=== PATIENT | male | born 1975 | race Caucasian/White ===

== ENCOUNTER 2019-02-17 04:22 | Emergency (ER) | payer SELFPAY ==
[2019-02-17] MEDS: 0.9 % SODIUM CHLORIDE 1,000 ML IV ONE (05:10)
--- NOTE | 2019-02-17 05:22 | ED Physician Documentation ---
Lower Extremity Injury - HISTORIAN Historian: patient - HPI Stated Complaint: "I FELL ABOUT 3 WKS AGO AND HURT MY KNEE Chief Complaint: Lower Extremity Injury (Left knee) Additional Information: 44 year old male presents to the ER with c/o left knee pain s/p fall 3 weeks ago. Patient states that he fell and landed on some rebar approx. 3 weeks ago. His father brought him in this morning stating that patient has been running fe chelo (afebrile on arrival) and was difficult to wake up (strong strong odor of alcohol)- patient states he has had 3 beers and peach schnapps. He has been taking aspirin for the knee pain; has not seen PCP. He is alert and oriented x 4. Onset: days ago Where: home Severity: moderate Context: fall Associated Symptoms:: swelling Modifying Factors:: pain on movement - ROS CONST: fever CVS/RESP: none GI/: denies: nausea, vomiting MS/SKIN/LYMPH: none NEURO: denies: head injury - PAST HX Past History: none Immunizations: UTD. denies: tetanus Allergies/Adverse Reactions: Allergies Allergy/AdvReac Type Severity Reaction Status Date / Time No Known Drug Allergies Allergy Verified 02/17/19 04:42 Home Medications: Ambulatory Orders Medication Instructions Recorded Clindamycin HCl [Cleocin HCl] 300 mg PO QID #28 capsule 02/17/19 - SOCIAL HX Smoking History: less than 1 pack/day Alcohol Use: occasionally Drug Use: none - FAMILY HX Family History: none - VITAL SIGNS Vital Signs: Vital Signs Temp Pulse Resp BP Pulse Ox 98.1 F 84 16 126/97 98 02/17/19 04:30 02/17/19 04:30 02/17/19 04:30 11/03/15 11:59 02/17/19 04:30 - REVIEWED ASSESSMENTS Nursing Assessment Reviewed: Yes Vitals Reviewed: Yes Progress - Progress Progress: 05:35 patient initially stated he had a few beers this evening; discussed blood alcohol > 400; patient finally admits to being a heavy drinker when he initially said occasionally. With alcohol > 400 patient is alert and oriented x 4; appropriate conversation; visiting with family at the bedside. ED Results Lab/Radiology - Radiology Radiology Impressions: Left knee three views History: Pain after fall 2 weeks ago Findings: Medial and prepatellar soft tissue swelling is observed without fracture, dislocation, arthropathy, or joint effusion. Electronically signed on Feb 17, 2019 5:33:43 AM DOCTOR OF NATUROPATHIC MEDICINE by: Jah Patten - Orders Orders: ED Orders Category Date Time Status Place IV Lock 1T Care 02/17/19 04:39 Active KNEE 3 VIEWS [RAD] Stat Exams 02/17/19 Completed ALCOHOL MEDICAL USE ONLY Stat Lab 02/17/19 05:00 Received BLOOD CULTURE Stat Lab 02/17/19 Ordered CBC/PLATELET/DIFF Routine Lab 02/17/19 Ordered CMP Routine Lab 02/17/19 05:00 Received 0.9 % Sodium Chloride [Normal Saline] 1,000 ml Med 02/17/19 04:39 Discontinued IV NOW Clindamycin Phosphate/D5w [Cleocin] Med 02/17/19 04:39 Discontinued 600 mg in 50 ml IV NOW Diph,Pertuss(Acell),Tet Vac/Pf [Adacel] Med 02/17/19 05:03 Discontinued 0.5 ml IM .ONCE ONE Lower Extremities Injury Phy - Physical Exam General Appearance: alert, mild distress Hips: bilateral hip: non-tender, normal inspection, normal range of motion, no evidence of injury Knees: left: pain, soft tissue tenderness, swelling Ankle: bilateral: non-tender, normal inspection, normal range of motion, no evidence of injury Foot: bilateral foot: non-tender, normal inspection, normal range of motion, no evidence of injury Gait: limited by pain Neuro/Vascular/Tendon: motor nml, pulse deficit (distant but palpable), ROM limited by pain Head/ENT: nml inspection, pharynx nml Neck/Back: nml inspection Resp/CVS: breath sounds nml, tachycardia Discharge Clincal Impression: Cellulitis of left knee, Chronic alcohol abuse Prescriptions: Clindamycin HCl [Cleocin HCl] 300 mg PO QID #28 capsule Referrals: Primary Doctor,No [Primary Care Provider] - 2 Days Additional Instructions: Take antibiotic as directed (Clindamycin 300mg by mouth 4 times a day for 7 days) Try to stop alcohol use or cut back significantly No smoking- delays healing Take Ibuprofen 600 mg by mouth every 6 hours as needed for pain (Avoid Tylenol due to elevated liver enzymes) Follow up with PCP next week for re-evaluation Comments: Patient is alert and oriented x 4; voiced understanding in regards to discharge instructions; brother and girlfriend are at the bedside. Condition: Good Disposition: 01 HOME, SELF-CARE Decision to Admit: NO Decision Time: 05:48
[2019-02-17] MEDS: DIPH,PERTUSS(ACELL),TET VAC/PF 0.5 ML DISP.SYRIN IM ONE (05:29)
[2019-02-17] MEDS: CLINDAMYCIN PHOSPHATE/D5W 600 MG/50 ML PIGGYBACK IV ONE (05:29)
--- NOTE | 2019-02-17 05:39 | Diagnostic Imaging Report ---
PATIENT MR#: [id number] PATIENT PATIENT NAME: QUAN BURROWS DATE OF : 1975 REFERRING PHYSICIAN: Sherine De La Torre EXAM DATE: 02/17/2019 ACCESSION NUMBER: [id number] EXAM DESCRIPTION: KNEE 3 VIEWS Left knee three views History: Pain after fall 2 weeks ago Findings: Medial and prepatellar soft tissue swelling is observed without fracture, dislocation, art hropathy, or joint effusion. Read by: Dr. Darryl Patten Transcribed by: Transcribed Date: Electronically signed by: Dr. Darryl Patten Date signed: 02/17/2019 5:38:34 AM
[2019-02-17 06:26] VITALS: BP 128/98
[2019-02-17 07:29] LABS: eGFR (Non-African) > 60
[2019-02-17 07:30] LABS: BASOPHILS % 0.5 % (0.0-1.5)
[2019-02-17 07:31] LABS: NEUTROPHILS # 2.5 # k/uL (1.4-7.7)
== END 2019-02-17 06:10 | disposition home or self-care (01) ==
LOC: ED 04:22
DX: L03.116 Cellulitis of left lower limb (principal); F10.10 Alcohol abuse, uncomplicated; Y90.9 Presence of alcohol in blood, level not specified
CPT/HCPCS: 73562; 80053; 80320; 85025; 87040; 90471; 90715; 96361; 96365; 99284; J7030; G0480; S1016